=== PATIENT | female | born 1960 | race African-American/Black ===

== ENCOUNTER 2016-11-21 19:29 | Emergency (ER) | payer MEDICAID ==
[~2016-11-21] VITALS: Ht 180.3 cm; Wt 127.0 kg
[~2016-11-21 19:29] MED LIST: CARI350 PO; HYDR-3971 PO; HYDR12.530 PO; IBUP-1547 PO; LEVO75 PO; METO-327 PO
[2016-11-21 20:15] LABS: APPEARANCE,URINE CLEAR (CLEAR); GLUCOSE, URINE (UA) NEGATIVE (NEGATIVE); KETONES,URINE NEGATIVE (NEGATIVE); OCCULT BLOOD,URINE TRACE (NEGATIVE); PROTEIN,URINE NEGATIVE (NEGATIVE)
[2016-11-21 20:18] LABS: ADD UA MICROSCOPIC YES; LEUKOCYTE ESTERASE ,URINE SMALL (NEGATIVE); SQUAMOUS EPITHELIAL CELL,UR Few /LPF (None Seen)
[2016-11-21 20:47] VITALS: BP 129/80
== END 2016-11-21 21:06 | disposition home or self-care (01) ==
LOC: EMS 19:30
DX: N39.0 Urinary tract infection, site not specified (principal); G89.29 Other chronic pain; I10 Essential (primary) hypertension
CPT/HCPCS: 87086; 99284

== ENCOUNTER 2021-09-17 14:52 | Emergency (ER) | payer MEDICAID ==
[~2021-09-17] VITALS: Ht 183.5 cm; Wt 104.5 kg
[~2021-09-17 14:52] MED LIST changes: -CARI350 PO; -HYDR-3971 PO; -IBUP-1547 PO; -METO-327 PO; +METO-416 PO
[2021-09-17 16:10] LABS: BASOPHILS % (AUTO) 0.8 % (0.0-2.0); EOSINOPHILS % (AUTO) 0.9 % (1.0-6.0); HEMATOCRIT 39.2 % (36-46); HEMOGLOBIN 13.3 g/dL (12.0-16.0); LYMPHOCYTES # (AUTO) 2.2 K/uL (1.0-4.8); LYMPHOCYTES % (AUTO) 41.5 % (22.0-44.0); MEAN CORPUSCULAR HEMOGLOBIN 33.3 pg (26.0-34.0); MEAN CORPUSCULAR VOLUME 98 fL (80-100); MONOCYTES # (AUTO) 0.3 K/uL (0.1-1.0); MONOCYTES % (AUTO) 5.7 % (2.0-9.0); NEUTROPHILS # (AUTO) 2.7 K/uL (1.8-7.7); NEUTROPHILS % (AUTO) 51.1 % (40.0-70.0); PLATELET COUNT (AUTO) 245 K/uL (150-450); RED CELL DISTRIBUTION WIDTH 13.9 % (11.5-14.5)
[2021-09-17 16:50] LABS: LACTIC ACID 1.2 mmol/L (0.4-2.0)
[2021-09-17 16:52] LABS: B-TYPE NATRIURETIC PEPTIDE 9 pg/mL (0-100)
[2021-09-17 16:55] LABS: COVID AG,FIA SOURCE NASOPHARYNGEAL
[2021-09-17 17:03] LABS: APPEARANCE,URINE HAZY (CLEAR); BILIRUBIN,URINE NEGATIVE (NEGATIVE); GLUCOSE, URINE (UA) NEGATIVE (NEGATIVE); KETONES,URINE NEGATIVE (NEGATIVE); LEUKOCYTE ESTERASE ,URINE LARGE (NEGATIVE); NITRATE,URINE NEGATIVE (NEGATIVE); OCCULT BLOOD,URINE TRACE (NEGATIVE); PROTEIN,URINE 30-70 mg/dL (NEGATIVE); SPECIFIC GRAVITIY, URINE 1.029 (1.003-1.030)
[2021-09-17 17:09] LABS: AMPHET/METH SCREEN,URINE POSITIVE (NEGATIVE); BARBITURATE SCREEN, URINE NEGATIVE (NEGATIVE); BENZODIAZEPINES SCREEN,URINE NEGATIVE (NEGATIVE); CANNABINOID SCREEN,URINE NEGATIVE (NEGATIVE); COCAINE SCREEN,URINE NEGATIVE (NEGATIVE); METHADONE SCREEN, URINE NEGATIVE (NEGATIVE); OPIATE SCREEN,URINE NEGATIVE (NEGATIVE)
[2021-09-17 17:10] VITALS: BP 125/73
[2021-09-17 17:13] LABS: PHENCYCLIDINE SCREEN,URINE NEGATIVE (NEGATIVE)
[2021-09-17 17:29] LABS: ANION GAP 14 mmol/L (8-16); CALCIUM, TOTAL 9.4 mg/dL (8.8-10.5); CARBON DIOXIDE 25 mmol/L (22-29); CHLORIDE 102 mmol/L (98-107); CREATININE 1.39 mg/dL (0.60-1.30); GLOMERULAR FILTR. RATE CALC 47 mL/min (>60); GLUCOSE,RANDOM 97 mg/dL (70-110); POTASSIUM 3.2 mmol/L (3.5-5.1); SODIUM SERUM 141 mmol/L (136-145); UREA NITROGEN, BLOOD 15 mg/dL (7-18)
[2021-09-17 17:32] LABS: THYROID STIMULATING HORMONE 63.59 uIU/mL (0.36-3.74)
[2021-09-17 17:35] LABS: ALANINE AMINOTRANSFERASE 54 U/L (12-78); ALBUMIN 4.3 g/dL (3.4-5.0); ALKALINE PHOSPHATASE 66 U/L (46-116); ASPARTATE AMINOTRANSFERASE 89 U/L (15-37); BILIRUBIN,TOTAL 0.5 mg/dL (0.1-1.0); LIPASE 86 U/L (73-393); TOTAL PROTEIN, SERUM 7.8 g/dL (6.4-8.2)
[2021-09-17 18:13] LABS: TRANSITIONAL EPI CELLS,URINE Many /LPF (None Seen)
[2021-09-17 18:14] LABS: BACTERIA,URINE Few /HPF (None Seen); CALCIUM PHOSPHATE CRYSTALS,UR Few /LPF (None Seen); RBC,URINE 0-2 /HPF (0-2)
[2021-09-17] MEDS ORDERED: CEPH-558 PO (18:18)
[2021-09-17] MEDS ORDERED: IBUP-1554 PO (18:18)
[2021-09-17] MEDS ORDERED: HYDR-4723 PO (18:18)
[2021-09-17] MEDS ORDERED: LISI10TA24 PO (18:25)
[2021-09-17] MEDS ORDERED: FLUT1AER4 IH (18:25)
[2021-09-17] MEDS ORDERED: PROM473S4 PO (18:25)
[2021-09-17] MEDS ORDERED: AMLO5TAB66 PO ×2 (18:25→18:32)
[2021-09-17] MEDS ORDERED: HYDROCODONE/ACETAMINOPHEN 5-325 MG TABLET PO ONE (18:30)
== END 2021-09-17 19:04 | disposition home or self-care (01) ==
LOC: EMS 14:56
DX: N39.0 Urinary tract infection, site not specified (principal); M54.50 Low back pain, unspecified; G89.29 Other chronic pain; E03.9 Hypothyroidism, unspecified; E87.6 Hypokalemia; F15.10 Other stimulant abuse, uncomplicated; R42 Dizziness and giddiness; I10 Essential (primary) hypertension; Z59.02 Unsheltered homelessness; Z20.822 Contact with and (suspected) exposure to COVID-19
CPT/HCPCS: 36415; 71045; 80053; 80307; 81001; 83605; 83690; 83880; 84443; 84484; 85025; 87086; 87426; 93005; 99285; G0480